=== PATIENT | male | born 1995 | race Caucasian/White ===

== ENCOUNTER 2019-03-09 07:17 | Emergency (ER) | payer MEDICAID, OTHER ==
[2019-03-09 07:51] VITALS: BP 134/59; PULSE 73
--- NOTE | 2019-03-09 07:53 | EDM.PDOC ---
ED HPI GENERAL MEDICAL PROBLEM - General Chief Complaint: Upper Extremity Injury/Pain Stated Complaint: LEFT WRIST PAIN Time Seen by Provider: 03/09/19 07:51 Source of Information: Reports: Patient, RN Notes Reviewed History Limitations: Reports: No Limitations - History of Present Illness INITIAL COMMENTS - FREE TEXT/NARRATIVE: 23-year-old gentleman presents to the emergency department today complaint of left wrist pain. He states he woke this morning with pain in his wrist difficulty moving it without pain. Denies any trauma he does work in the construction industry. No problems with sensation wrist Pain Score (Numeric/FACES): 10 - Related Data Allergies Allergy/AdvReac Type Severity Reaction Status Date / Time amoxicillin [Amoxicillin] Allergy Hives Verified 03/09/19 07:32 Home Meds: Home Meds NK [No Known Home Meds] 04/20/14 [History] Past Medical History Respiratory History: Reports: Asthma Neurological History: Reports: Concussion, Head Trauma Psychiatric History: Reports: Anxiety - Past Surgical History GI Surgical History: Reports: Hernia Repair/Other Social & Family History - Tobacco Use Smoking Status *Q: Current Every Day Smoker Years of Tobacco use: 9 Packs/Tins Daily: 0.5 - Caffeine Use Caffeine Use: Reports: Soda - Recreational Drug Use Recreational Drug Use: No Review of Systems - Review of Systems Review Of Systems: See Below Musculoskeletal: Reports: Joint Pain (Left wrist) Skin: Reports: No Symptoms Neurological: Reports: No Symptoms ED EXAM, GENERAL - Physical Exam Exam: See Below Free Text/Narrative:: Examination of the left wrist radial pulses +2 he has limited range of motion secondary to pain the wrist does appear deviated laterally when compared to the right wrist. Sensation is intact Course - Vital Signs Last Recorded V/S: Last Vital Signs Temp 98.2 F 03/09/19 07:31 Pulse 73 03/09/19 07:31 Resp 13 03/09/19 07:31 BP 134/59 L 03/09/19 07:31 Pulse Ox 97 03/09/19 07:31 Departure - Departure Time of Disposition: 08:31 Disposition: Home, Self-Care 01 Condition: Fair (r) Clinical Impression: Left wrist pain - Discharge Information Referrals: PCP,None [Primary Care Provider] - Forms: ED Department Discharge Additional Instructions: Continue to use the wrist splint for comfort, use Tylenol or Motrin as needed for pain control, orthopedics will call you for an appointment time - Assessment/Plan Plan: Assessment Acuity = acute Site and laterality = left wrist pain Etiology = suspicious for repetitive motion injury Manifestations = none Location of injury = Home Lab values = x-ray is negative for any fracture or dislocation Plan He is placed in a preformed wrist splint appointment for further evaluation by orthopedics this week Tylenol or Motrin as needed for pain control This note was dictated using [employer] voice recognition software please call with any questions on syntax or grammar.
--- NOTE | 2019-03-09 08:26 | CRLCR ---
INDICATION: Pain. FINDINGS: Three views of the left wrist show no evidence of acute fracture or dislocation. No other bony or soft tissue abnormalities identified. Dictated by Roderick Ocampo MD @ 03/09/2019 8:24:41 AM Dictated by: Roderick Ocampo MD @ 03/09/2019 08:25:03 (Electronically Signed)
== END 2019-03-09 08:40 | disposition home or self-care (01) ==
LOC: JP.ED 07:17
DX: M25.532 Pain in left wrist (principal); F17.210 Nicotine dependence, cigarettes, uncomplicated; Z88.0 Allergy status to penicillin
CPT/HCPCS: 73110-LT; 99283; 99283-25

== ENCOUNTER 2021-10-08 15:53 | Emergency (ER) | payer SELFPAY ==
[2021-10-08 16:43] VITALS: BP 132/76; PULSE 118
== END 2021-10-08 18:22 | disposition home or self-care (01) ==
LOC: JP.ED 15:53
DX: F32.A Depression, unspecified (principal); R45.851 Suicidal ideations; Z88.0 Allergy status to penicillin
CPT/HCPCS: 99282; 99283

== ENCOUNTER 2022-01-01 08:38 | Emergency (ER) | payer OTHER ==
[2022-01-01 08:54] VITALS: BP 110/80; PULSE 63
== END 2022-01-01 09:28 | disposition home or self-care (01) ==
LOC: JP.ED 08:38
DX: S67.10XA Crushing injury of unspecified finger(s), initial encounter (principal); Z88.0 Allergy status to penicillin; W23.1XXA Caught, crushed, jammed, or pinched between stationary objects, initial encounter; Y99.0 Civilian activity done for income or pay
CPT/HCPCS: 73140-26-F6; 73140-F6; 99281; 99283